=== PATIENT | female | born 1975 | race Caucasian/White ===

== ENCOUNTER 2018-03-10 10:49 | Outpatient (CLI) | payer OTHER ==
--- NOTE | 2018-03-10 11:54 | ULT ---
PELVIC ULTRASOUND INCLUDING TRANSABDOMINAL AND TRANSVAGINAL AND VASCULAR DUPLEX WITH COLOR AND SPECTR AL DOPPLER IMAGING: History: 42-year-old female with history of abnormal uterine bleeding. FINDINGS: Uterus measures 10.8 x 5.5 x 5.7 cm with an endometrium measuring 0.8 cm. The right ovary is enlarged measuring 2.3 x 4.0 x 4.7 cm containing a 3.1 x 4.0 x 4.4 cm cyst. The left ovary measures 2.2 x 2.5 x 3.1 cm and contains a 2.1 x 2.7 x 2.4 cm cyst. No abscess or abnormal fluid collection. Arterial e nd flow and venous outflow documented to both ovaries. IMPRESSION: Bilateral ovarian cysts, the large one on the right side measuring 3.1 x 4.0 x 4.4 cm. No evidence fo r other significant acute process. POS: [facility]
== END 2018-03-10 10:50 | disposition home or self-care (01) ==
LOC: SCSULT 10:49
PROVIDERS: ATTEND Physician Assistant
DX: N93.9 Abnormal uterine and vaginal bleeding, unspecified (principal); N83.202 Unspecified ovarian cyst, left side; N83.201 Unspecified ovarian cyst, right side
CPT/HCPCS: 76856